=== PATIENT | female | born 2005 | race Caucasian/White ===

== ENCOUNTER → 2023-05-23 10:44 | Outpatient (REF) | payer BC, SELFPAY ==
[2023-05-23 12:49] LABS: % Basophils 0.8 % (0-2); % Eosinophils 1.4 % (0-6); % Immature Granulocytes 0.2 % (0-0.5); % Lymphocytes 42.6 % (20.5-51.1); % Monocytes 8.8 % (1.7-9.3); % Neutrophils 46.2 % (42.2-75.2); Absolute Basophils 0.1 10^3/uL (0-0.2); Absolute Eosinophils 0.1 10^3/uL (0-0.7); Absolute Lymphocytes 2.7 10^3/uL (1.2-3.4); Absolute Monocytes 0.6 10^3/uL (0.1-0.6); Hematocrit 40.3 % (37.0-47.0); Hemoglobin 14.1 g/dL (12.0-16.0); Mean Corpuscular Hgb 29.3 pg (27.0-31.0); Mean Corpuscular Volume 83.6 fL (81.0-99.0); Mean Platelet Volume 9.6 fL (7.4-10.4); Nucleated Red Blood Cells % 0 %; Platelet Count 262 10^3/uL (130-400); Red Blood Cell Count 4.82 10^6/uL (4.20-5.40); Red Cell Dist. Width 11.8 % (11.5-14.5); White Blood Cell Count 6.4 10^3/uL (4.8-10.8)
[2023-05-23 12:56] LABS: ALT (SGPT) 19 U/L (0-35); AST (SGOT) 26 U/L (14-36); Albumin 4.9 g/dl (3.5-5.0); Alkaline Phosphatase 60 U/L (38-126); Blood Urea Nitrogen 12 mg/dl (7-17); Calcium 9.9 mg/dl (8.4-10.2); Carbon Dioxide 24 mmol/L (22-30); Chloride 100 mmol/L (98-107); Glucose 86 mg/dl (70-99); Sodium 136 mmol/L (135-145); Total Bilirubin 0.6 mg/dl (0.2-1.3); Total Protein 7.6 g/dl (6.3-8.2); eGFR > 60.00
[2023-05-23 12:58] LABS: C-Reactive Protein < 5.00 mg/L (0.0-10.00)
[2023-05-23 13:09] LABS: Urine Albumin Negative (Neg - Trace); Urine Bilirubin Negative (Negative); Urine Character Clear (Clear); Urine Color Yellow; Urine Glucose Negative (Negative); Urine Ketone Negative (Negative); Urine Leukocyte Negative (Negative); Urine Nitrite Negative (Negative); Urine Occult Blood Negative (Negative); Urine Urobilinogen Negative (Neg - 1+)
[2023-05-23 13:09] LABS: Erythrocyte Sed Rate 12 mm/hour (0-20)
[2023-05-23 23:42] LABS: Complement C3 82 mg/dl (88-165)
[2023-05-24 15:52] LABS: Rheumatoid Agglutinin Less Than 10 IU (<10 IU)
[2023-05-25 14:53] LABS: Syphilis/T. pallidum Ab Reflex Negative (Negative)
== END ==
LOC: RCS 10:44
PROVIDERS: ATTENDING PHYSICIAN Nurse Practitioner Adult Health
DX: R07.9 Chest pain, unspecified (principal); A53.0 Latent syphilis, unspecified as early or late; L60.8 Other nail disorders; R59.0 Localized enlarged lymph nodes; R06.09 Other forms of dyspnea
CPT/HCPCS: 36415; 80053; 81003; 85025; 85652; 86140; 86160; 86430; 86780; 93306